=== PATIENT | female | born 1970 | race Caucasian/White ===

== ENCOUNTER → 2017-05-03 | Outpatient (CLI) | payer MEDICARE, MEDICAID ==
[~2017-05-03] MED LIST: 'XANAX0.25 MG PO; AUGMENTIN 875 M1 TA1 PO; AUGMENTIN 875 M1 TAB PO; BACTRIM DS 8001 TA1 PO; BACTROBAN CREAM15 GM NAS; BACTROBAN22 TP; CLARITIN10 MG PO; CLINDAMYCIN HC300 MG PO; DAYPRO600 M1 PO; DICLOFENAC POTA50 MG PO; DIFLUCAN150 MG PO; DOXYCYCLINE100 M2 PO; FLEXERIL10 MG PO; FLEXERIL5 MG PO; FOLIC ACID800 MCG PO; JANUVIA100 MG PO; KEFLEX500 MG PO; LANTUS100 U/ML SC; LIDODERM 5% PATC1 EA PO; LYRICA150 MG PO; MEDROL DOSEPAK4 MG PO; METFORMIN500 MG PO; MIRAPEX1 MG PO; MOTRIN800 MG PO; NORFLEX100 MG PO; ONGLYZA5 MG PO; PRAVACHOL40 MG PO; PREDNICOT20 MG PO; PREDNISONE20 MG PO; PROVENTIL0.09 MG/AC IH; REQUIP1 MG PO; ROBAXIN750 MG PO; SEPTRA DS 800 M1 TAB PO; SIMVASTATIN40 MG PO; TESSALON PERLE100 M1 PO; TORADOL10 MG PO; TRAMADOL HCL50 MG PO; ULTRAM50 MG PO; VICO75300 PO; VICODIN 5/500 505 MG PO; VICODIN 500 MG-1 TAB PO; VICODIN ES 7501 TA1 PO; VICODIN ES 7501 TAB PO; VITAMIN D5000 I2 PO; VOLTAREN50 M1 PO; ZITHROMAX Z PA250 MG PO
[2017-05-03 08:17] LABS: BASO % 0.4 % (0.0-1.0); EOS # 0.3 10*3/uL (0.0-0.4); EOS % 2.9 % (1.0-4.0); HEMATOCRIT 40.2 % (37.0-47.0); LYMPH # 2.3 10*3/uL (1.3-4.4); LYMPH % 23.3 % (27.0-41.0); MEAN CELL VOLUME 92.2 fl (81.0-99.0); MEAN CORPUSCULAR HGB 29.8 pg (27.0-31.0); MEAN CORPUSCULAR HGB CONC 32.3 g/dl (33.0-37.0); MEAN PLATELET VOLUME 10.3 fl (9.6-12.3); MONO # 0.7 10*3/uL (0.1-1.0); MONO % 7.2 % (3.0-9.0); NEUT # 6.4 10*3/uL (2.3-7.9); NEUT % 65.8 % (47.0-73.0); PLATELET COUNT AUTOMATED 329 10*3/uL (130-400); RED BLOOD COUNT 4.36 10*6/uL (4.10-5.10); RED CELL DISTRI WIDTH 15.9 % (0-14.5); WHITE BLOOD COUNT 9.7 10*3/uL (4.8-10.8)
[2017-05-03 09:00] LABS: CREATININE 0.53 mg/dL (0.55-1.02); SGPT/ALT 19 U/L (12-78)
== END | disposition home or self-care (01) ==
LOC: LAB 06:57 → MAMMO 07:20
DX: Z12.31 Encounter for screening mammogram for malignant neoplasm of breast (principal); M05.79 Rheumatoid arthritis with rheumatoid factor of multiple sites without organ or systems involvement; Z79.899 Other long term (current) drug therapy

== ENCOUNTER 2017-10-12 14:55 | Emergency (ER) | payer MEDICARE, MEDICAID ==
[~2017-10-12] VITALS: Ht 165.1 cm; Wt 90.7 kg
[2017-10-12 14:59] VITALS: BP 172/83
[2017-10-12] MEDS ORDERED: DELTASONE20 M1 PO (16:52)
== END 2017-10-12 17:01 | disposition home or self-care (01) ==
LOC: ED 14:55
DX: G89.29 Other chronic pain (principal); M54.5 Low back pain; F17.200 Nicotine dependence, unspecified, uncomplicated; Z98.51 Tubal ligation status; Z98.890 Other specified postprocedural states; Z79.899 Other long term (current) drug therapy

== ENCOUNTER 2017-10-16 09:20 | Emergency (ER) | payer MEDICARE ==
[~2017-10-16] VITALS: Wt 90.7 kg
[~2017-10-16 09:20] MED LIST changes: +DELTASONE20 M1 PO
[2017-10-16 09:35] VITALS: BP 148/95
[2017-10-16] MEDS ORDERED: Percocet 325 MG1 TAB PO (09:37)
[2017-10-16] MEDS ORDERED: PREDNISONE10 M1 PO ×2 (10:02→10:07)
[2017-10-16] MEDS ORDERED: Orphenadrine C100 MG PO (10:07)
== END 2017-10-16 10:31 | disposition home or self-care (01) ==
LOC: ED 09:20
DX: M54.30 Sciatica, unspecified side (principal); F17.200 Nicotine dependence, unspecified, uncomplicated; Z79.899 Other long term (current) drug therapy

== ENCOUNTER 2017-10-18 17:11 | Emergency (ER) | payer MEDICARE ==
[~2017-10-18 17:11] MED LIST changes: +Orphenadrine C100 MG PO; +PREDNISONE10 M1 PO; +Percocet 325 MG1 TAB PO
[2017-10-18 17:42] LABS: BASO % 0.3 % (0.0-1.0); EOS # 0.1 10*3/uL (0.0-0.4); EOS % 0.4 % (1.0-4.0); HEMATOCRIT 38.7 % (37.0-47.0); HEMOGLOBIN 12.7 g/dl (12.0-16.0); LYMPH # 4.5 10*3/uL (1.3-4.4); LYMPH % 28.1 % (27.0-41.0); MEAN CELL VOLUME 87.6 fl (81.0-99.0); MEAN CORPUSCULAR HGB 28.7 pg (27.0-31.0); MEAN CORPUSCULAR HGB CONC 32.8 g/dl (33.0-37.0); MEAN PLATELET VOLUME 9.8 fl (9.6-12.3); MONO # 1.1 10*3/uL (0.1-1.0); MONO % 6.8 % (3.0-9.0); NEUT # 10.2 10*3/uL (2.3-7.9); NEUT % 63.9 % (47.0-73.0); PLATELET COUNT AUTOMATED 358 10*3/uL (130-400); RED BLOOD COUNT 4.42 10*6/uL (4.10-5.10); RED CELL DISTRI WIDTH 14.6 % (0-14.5)
[2017-10-18 17:58] LABS: ALBUMIN 3.3 gm/dl (3.1-4.5); ALKALINE PHOSPHATASE 89 U/L (45-117); BUN 13 mg/dl (7-24); CHLORIDE 101 mmol/L (98-107); CREATININE 0.59 mg/dL (0.55-1.02); POTASSIUM 3.5 mmol/L (3.5-5.1); SGOT/AST 6 IU/L (3-35); SGPT/ALT 18 U/L (12-78); SODIUM 139 mmol/L (136-145); TOTAL PROTEIN 6.8 gm/dL (6.4-8.2)
[2017-10-18 19:11] VITALS: BP 169/86
== END 2017-10-18 20:00 | disposition home or self-care (01) ==
LOC: ED 17:11
PROVIDERS: Physician Assistant
DX: M54.16 Radiculopathy, lumbar region (principal); Z79.899 Other long term (current) drug therapy

== ENCOUNTER 2017-10-29 21:18 | Emergency (ER) | payer MEDICARE ==
[~2017-10-29] VITALS: Ht 165.1 cm; Wt 99.8 kg
[2017-10-29 21:22] VITALS: BP 160/81
[2017-10-29] MEDS ORDERED: AUGMENTIN 875875 MG PO (23:21)
[2017-10-29] MEDS ORDERED: MEDROL DOSEPAK4 MG PO (23:21)
[2017-10-29] MEDS ORDERED: PROAIR HFA8.5 GM INH (23:21)
== END 2017-10-29 23:26 | disposition home or self-care (01) ==
LOC: ED 21:18
DX: J40 Bronchitis, not specified as acute or chronic (principal); F17.200 Nicotine dependence, unspecified, uncomplicated; Z98.51 Tubal ligation status; Z98.890 Other specified postprocedural states; Z79.899 Other long term (current) drug therapy

== ENCOUNTER → 2017-11-22 | Day surgery (SDC) | payer MEDICARE ==
[~2017-11-22] VITALS: Ht 165.1 cm; Wt 99.8 kg
[2017-11-22] VITALS (10 sets, daily range): BP systolic 139–158; BP diastolic 54–81
[~2017-11-22] MED LIST changes: +AUGMENTIN 875875 MG PO; +CYCLOBENZAPRINE10 MG PO; +LEVEMIR100 UNIT/1 SC; +PROAIR HFA8.5 GM INH; +VICTOZA 2-0.6 MG/0.1 SC; +VITAMIN D-32000 UNI1 PO
== END | disposition home or self-care (01) ==
LOC: EDSTATUS 11-12 11:45 → SDC 11-12 11:45 → RAD 11-15 11:30 → CT 11-15 13:00 → SDC 11-19 10:15
DX: M48.061 Spinal stenosis, lumbar region without neurogenic claudication (principal); G89.29 Other chronic pain; M51.36 Other intervertebral disc degeneration, lumbar region; M51.26 Other intervertebral disc displacement, lumbar region; M54.16 Radiculopathy, lumbar region; F17.210 Nicotine dependence, cigarettes, uncomplicated; G43.909 Migraine, unspecified, not intractable, without status migrainosus; E11.9 Type 2 diabetes mellitus without complications; E78.00 Pure hypercholesterolemia, unspecified; Z87.442 Personal history of urinary calculi; Z86.14 Personal history of Methicillin resistant Staphylococcus aureus infection

== ENCOUNTER → 2018-01-03 | Outpatient (CLI) | payer MEDICARE | END | disposition home or self-care (01) | LOC: MAMMO 13:11 | DX: N63.10 Unspecified lump in the right breast, unspecified quadrant (principal); R05 Cough; R92.8 Other abnormal and inconclusive findings on diagnostic imaging of breast ==

== ENCOUNTER 2018-05-26 11:20 | Emergency (ER) | payer MEDICARE ==
[~2018-05-26] VITALS: Ht 165.1 cm; Wt 90.7 kg
--- NOTE | ~2018-05-26 | EKG ---
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
[2018-05-26 11:37] LABS: BASO # 0.1 10*3/uL (0.0-0.1); BASO % 0.7 % (0.0-1.0); EOS # 0.3 10*3/uL (0.0-0.4); EOS % 3.6 % (1.0-4.0); HEMATOCRIT 42.9 % (37.0-47.0); HEMOGLOBIN 14.3 g/dl (12.0-16.0); LYMPH # 2.8 10*3/uL (1.3-4.4); LYMPH % 31.3 % (27.0-41.0); MEAN CELL VOLUME 89.7 fl (81.0-99.0); MEAN CORPUSCULAR HGB 29.9 pg (27.0-31.0); MEAN CORPUSCULAR HGB CONC 33.3 g/dl (33.0-37.0); MEAN PLATELET VOLUME 9.7 fl (9.6-12.3); MONO # 0.6 10*3/uL (0.1-1.0); MONO % 6.3 % (3.0-9.0); NEUT # 5.1 10*3/uL (2.3-7.9); PLATELET COUNT AUTOMATED 350 10*3/uL (130-400); RED BLOOD COUNT 4.78 10*6/uL (4.10-5.10); RED CELL DISTRI WIDTH 15.3 % (0-14.5); WHITE BLOOD COUNT 8.8 10*3/uL (4.8-10.8)
[2018-05-26] MEDS ORDERED: LOSARTAN POTASS25 M1 PO (11:40)
[2018-05-26 11:46] LABS: ACT PARTIAL THROMBO TIME 23.3 SECONDS (20.8-31.5); INTERNATIONAL NORM RATIO 0.9 (2.0-3.5)
[2018-05-26 11:54] LABS: ALBUMIN 3.5 gm/dl (3.1-4.5); ALKALINE PHOSPHATASE 96 U/L (45-117); BUN 6 mg/dl (7-24); CHLORIDE 104 mmol/L (98-107); LIPASE 95 U/L (73-393); POTASSIUM 3.9 mmol/L (3.5-5.1); SGOT/AST 8 IU/L (3-35); SGPT/ALT 20 U/L (12-78); SODIUM 140 mmol/L (136-145); TOTAL PROTEIN 7.9 gm/dL (6.4-8.2)
[2018-05-26 12:02] LABS: TROPONIN I < 0.015 ng/ml (<0.045)
[2018-05-26 13:55] VITALS: BP 172/91
[2018-07-05] MEDS ORDERED: IBU800 MG PO (17:08)
[2018-07-05] MEDS ORDERED: PREDNISONE50 MG PO (17:08)
[2018-07-05] MEDS ORDERED: CHLORZOXAZONE500 M2 PO (17:08)
== END 2018-05-26 14:51 | disposition home or self-care (01) ==
LOC: ED 11:20
PROVIDERS: Emergency Medicine
DX: I10 Essential (primary) hypertension (principal); R79.1 Abnormal coagulation profile; Z98.51 Tubal ligation status; Z79.899 Other long term (current) drug therapy

== ENCOUNTER 2018-07-16 23:30 | Emergency (ER) | payer MEDICARE ==
[~2018-07-16] VITALS: Ht 165.1 cm; Wt 90.7 kg
[~2018-07-16 23:30] MED LIST changes: +CHLORZOXAZONE500 M2 PO; +IBU800 MG PO; +LOSARTAN POTASS25 M1 PO; +PREDNISONE50 MG PO
[2018-07-16 23:35] VITALS: BP 133/51
[2018-07-17] MEDS ORDERED: KETOROLAC10 MG PO (01:31)
[2018-07-17] MEDS ORDERED: ROBAXIN500 M1 PO (01:31)
== END 2018-07-17 01:51 | disposition home or self-care (01) ==
LOC: ED 23:30
DX: M54.16 Radiculopathy, lumbar region (principal); Z79.899 Other long term (current) drug therapy; Z79.84 Long term (current) use of oral hypoglycemic drugs; Z98.51 Tubal ligation status

== ENCOUNTER → 2018-07-18 | Outpatient (CLI) | payer MEDICARE ==
[~2018-07-18] MED LIST changes: +KETOROLAC10 MG PO; +ROBAXIN500 M1 PO
== END | disposition home or self-care (01) ==
LOC: CARD 02:27
DX: R00.0 Tachycardia, unspecified (principal); R05 Cough

== ENCOUNTER 2018-07-26 12:26 | Emergency (ER) | payer MEDICARE ==
[~2018-07-26] VITALS: Ht 165.1 cm; Wt 90.7 kg
[2018-07-26 12:27] VITALS: BP 131/69
[2018-07-31] MEDS ORDERED: NAPROSYN500 MG PO (06:08)
[2018-07-31] MEDS ORDERED: CYCLOBENZAPRINE10 MG PO (06:08)
== END 2018-07-26 13:10 | disposition home or self-care (01) ==
LOC: ED 12:26
DX: G89.29 Other chronic pain (principal); M54.5 Low back pain; E66.9 Obesity, unspecified; F17.210 Nicotine dependence, cigarettes, uncomplicated; Z79.899 Other long term (current) drug therapy; Z79.84 Long term (current) use of oral hypoglycemic drugs

== ENCOUNTER 2018-08-10 16:06 | Emergency (ER) | payer MEDICARE ==
[~2018-08-10] VITALS: Ht 165.1 cm; Wt 90.7 kg
[2018-08-10 16:06] VITALS: BP 121/58
[~2018-08-10 16:06] MED LIST changes: +NAPROSYN500 MG PO
[2018-08-10] MEDS ORDERED: CYCLOBENZAPRINE5 M3 PO (17:46)
[2018-08-10] MEDS ORDERED: PREDNISONE10 MG PO (17:46)
[2018-08-10] MEDS ORDERED: Motrin,Rufen800 MG PO (17:46)
== END 2018-08-10 18:03 | disposition home or self-care (01) ==
LOC: ED 16:06
DX: M54.42 Lumbago with sciatica, left side (principal); Z79.899 Other long term (current) drug therapy

== ENCOUNTER 2019-03-28 14:05 | Emergency (ER) | payer MEDICARE ==
[~2019-03-28] VITALS: Ht 165.1 cm; Wt 90.7 kg
[~2019-03-28 14:05] MED LIST changes: +CYCLOBENZAPRINE5 M3 PO; +Motrin,Rufen800 MG PO; +PREDNISONE10 MG PO; +SEPTDS PO
[2019-03-28 14:08] VITALS: BP 153/82
[2019-03-28 15:19] LABS: BASO # 0.1 10*3/uL (0.0-0.1); BASO % 0.6 % (0.0-1.0); EOS # 0.2 10*3/uL (0.0-0.4); EOS % 1.2 % (1.0-4.0); HEMATOCRIT 41.5 % (37.0-47.0); HEMOGLOBIN 13.5 g/dl (12.0-16.0); LYMPH # 2.8 10*3/uL (1.3-4.4); LYMPH % 22.6 % (27.0-41.0); MEAN CELL VOLUME 90.2 fl (81.0-99.0); MEAN CORPUSCULAR HGB 29.3 pg (27.0-31.0); MEAN CORPUSCULAR HGB CONC 32.5 g/dl (33.0-37.0); MEAN PLATELET VOLUME 9.7 fl (9.6-12.3); MONO # 0.6 10*3/uL (0.1-1.0); NEUT # 8.9 10*3/uL (2.3-7.9); NEUT % 70.4 % (47.0-73.0); PLATELET COUNT AUTOMATED 424 10*3/uL (130-400); RED CELL DISTRI WIDTH 14.1 % (0-14.5); WHITE BLOOD COUNT 12.6 10*3/uL (4.8-10.8)
[2019-03-28 15:35] LABS: ALBUMIN 3.5 gm/dl (3.1-4.5); ALKALINE PHOSPHATASE 95 U/L (45-117); BUN 5 mg/dl (7-24); CHLORIDE 101 mmol/L (98-107); CREATININE 0.64 mg/dL (0.55-1.02); POTASSIUM 3.7 mmol/L (3.5-5.1); SGOT/AST 4 IU/L (3-35); SGPT/ALT 19 U/L (12-78); SODIUM 137 mmol/L (136-145); TOTAL PROTEIN 7.8 gm/dL (6.4-8.2)
[2019-03-28] MEDS ORDERED: SEPTDS PO (18:53)
[2019-03-28] MEDS ORDERED: MEDROL DOSEPAK4 MG PO (18:53)
== END 2019-03-28 18:56 | disposition home or self-care (01) ==
LOC: ED 14:05
PROVIDERS: Nurse Practitioner Family
DX: J32.9 Chronic sinusitis, unspecified (principal); R11.2 Nausea with vomiting, unspecified; I10 Essential (primary) hypertension; G89.29 Other chronic pain; Z79.899 Other long term (current) drug therapy; Z79.2 Long term (current) use of antibiotics

== ENCOUNTER → 2019-07-03 | Outpatient (CLI) | payer MEDICARE ==
[~2019-07-03] MED LIST changes: +K-TAB20 MEQ PO; +TAMIFLU 75MG CA75 MG PO
== END | disposition home or self-care (01) ==
LOC: RAD 08:10
DX: M47.812 Spondylosis without myelopathy or radiculopathy, cervical region (principal); M25.512 Pain in left shoulder; M25.522 Pain in left elbow; T14.8XXA Other injury of unspecified body region, initial encounter; X58.XXXA Exposure to other specified factors, initial encounter; Y93.89 Activity, other specified; Y92.89 Other specified places as the place of occurrence of the external cause; Y99.8 Other external cause status

== ENCOUNTER 2019-07-17 19:41 | Emergency (ER) | payer MEDICARE ==
[~2019-07-17] VITALS: Ht 165.1 cm; Wt 90.7 kg
[~2019-07-17 19:41] MED LIST changes: -K-TAB20 MEQ PO; -TAMIFLU 75MG CA75 MG PO
[2019-07-17 19:42] VITALS: BP 136/54
[2019-07-17 21:44] LABS: BASO % 0.3 % (0.0-1.0); HEMATOCRIT 40.1 % (37.0-47.0); HEMOGLOBIN 13.4 g/dl (12.0-16.0); LYMPH % 14.8 % (27.0-41.0); MEAN CELL VOLUME 90.3 fl (81.0-99.0); MEAN CORPUSCULAR HGB 30.2 pg (27.0-31.0); MEAN CORPUSCULAR HGB CONC 33.4 g/dl (33.0-37.0); MEAN PLATELET VOLUME 9.9 fl (9.6-12.3); MONO # 0.8 10*3/uL (0.1-1.0); MONO % 11.7 % (3.0-9.0); NEUT # 5.1 10*3/uL (2.3-7.9); NEUT % 72.8 % (47.0-73.0); PLATELET COUNT AUTOMATED 287 10*3/uL (130-400); RED BLOOD COUNT 4.44 10*6/uL (4.10-5.10); RED CELL DISTRI WIDTH 14.3 % (0-14.5)
[2019-07-17 22:01] LABS: ALBUMIN 3.2 gm/dl (3.1-4.5); ALKALINE PHOSPHATASE 69 U/L (45-117); BUN 12 mg/dl (7-24); CHLORIDE 97 mmol/L (98-107); CREATININE 0.65 mg/dL (0.55-1.02); POTASSIUM 3.3 mmol/L (3.5-5.1); SGOT/AST 11 IU/L (3-35); SGPT/ALT 15 U/L (12-78); SODIUM 132 mmol/L (136-145); TOTAL PROTEIN 7.3 gm/dL (6.4-8.2)
[2019-07-17] MEDS ORDERED: MEDROL DOSEPAK4 MG PO (22:42)
[2019-07-17] MEDS ORDERED: TAMIFLU 75MG CA75 MG PO (22:42)
[2019-07-17] MEDS ORDERED: K-TAB20 MEQ PO (22:45)
== END 2019-07-17 23:28 | disposition home or self-care (01) ==
LOC: ED 19:41
PROVIDERS: Physician Assistant
DX: J10.1 Influenza due to other identified influenza virus with other respiratory manifestations (principal); J40 Bronchitis, not specified as acute or chronic; G43.909 Migraine, unspecified, not intractable, without status migrainosus; E11.9 Type 2 diabetes mellitus without complications; E78.00 Pure hypercholesterolemia, unspecified; G89.29 Other chronic pain; F17.200 Nicotine dependence, unspecified, uncomplicated; Z79.2 Long term (current) use of antibiotics; Z79.899 Other long term (current) drug therapy; Z79.4 Long term (current) use of insulin

== ENCOUNTER → 2020-09-03 | Outpatient (CLI) | payer MEDICARE ==
[~2020-09-03] MED LIST changes: +K-TAB20 MEQ PO; +TAMIFLU 75MG CA75 MG PO
== END | disposition home or self-care (01) ==
LOC: COVID19 10:58
PROVIDERS: ATTEND Family Medicine
DX: R05 Cough (principal); Z20.822 Contact with and (suspected) exposure to COVID-19

== ENCOUNTER → 2020-10-11 | Outpatient (CLI) | payer MEDICARE ==
[2020-10-11 09:16] LABS: BASO # 0.1 10*3/uL (0.0-0.1); BASO % 0.6 % (0.0-1.0); EOS # 0.3 10*3/uL (0.0-0.4); EOS % 3.2 % (1.0-4.0); HEMATOCRIT 40.5 % (37.0-47.0); LYMPH # 3.2 10*3/uL (1.3-4.4); MEAN CELL VOLUME 90.4 fl (81.0-99.0); MEAN CORPUSCULAR HGB 29.2 pg (27.0-31.0); MEAN CORPUSCULAR HGB CONC 32.3 g/dl (33.0-37.0); MEAN PLATELET VOLUME 9.9 fl (9.6-12.3); MONO # 0.7 10*3/uL (0.1-1.0); MONO % 6.9 % (3.0-9.0); NEUT # 6.3 10*3/uL (2.3-7.9); NEUT % 58.8 % (47.0-73.0); PLATELET COUNT AUTOMATED 400 10*3/uL (130-400); RED BLOOD COUNT 4.48 10*6/uL (4.10-5.10); RED CELL DISTRI WIDTH 14.3 % (0-14.5); WHITE BLOOD COUNT 10.7 10*3/uL (4.8-10.8)
== END | disposition home or self-care (01) ==
LOC: LAB 08:51
PROVIDERS: Physical Therapist; ATTEND Family Medicine
DX: M79.10 Myalgia, unspecified site (principal); R53.83 Other fatigue

== ENCOUNTER 2021-05-22 17:20 | Emergency (ER) | payer MEDICARE ==
[~2021-05-22] VITALS: Ht 165.1 cm; Wt 81.6 kg
[2021-05-22 17:32] VITALS: BP 135/69
== END 2021-05-22 21:38 | disposition left against medical advice (07) ==
LOC: ED 17:20
DX: M79.605 Pain in left leg (principal); Z53.21 Procedure and treatment not carried out due to patient leaving prior to being seen by health care provider

== ENCOUNTER → 2021-05-23 | Outpatient (CLI) | payer OTHER | END | disposition home or self-care (01) | LOC: US 15:30 | PROVIDERS: ATTEND Family Medicine | DX: R59.0 Localized enlarged lymph nodes (principal); R60.0 Localized edema ==

== ENCOUNTER → 2021-06-16 | Outpatient (CLI) | payer OTHER | END | disposition home or self-care (01) | LOC: CARD 15:00 | PROVIDERS: ATTEND Family Medicine | DX: I51.7 Cardiomegaly (principal); R01.1 Cardiac murmur, unspecified ==

== ENCOUNTER → 2021-09-20 | Outpatient (CLI) | payer OTHER ==
[2021-09-20 14:11] LABS: ALBUMIN 3.2 gm/dl (3.1-4.5); ALKALINE PHOSPHATASE 61 U/L (45-117); BUN 17 mg/dl (7-24); CREATININE 0.73 mg/dL (0.55-1.02); SGOT/AST 13 IU/L (3-35); SGPT/ALT 22 U/L (12-78)
[2021-09-20 14:16] LABS: CHLORIDE 106 mmol/L (98-107); POTASSIUM 3.6 mmol/L (3.5-5.1); SODIUM 142 mmol/L (136-145)
== END | disposition home or self-care (01) ==
LOC: CARD 12:00 → LAB 12:01 → CARD 12:01
PROVIDERS: Orthopaedic Surgery; ATTEND Internal Medicine Cardiovascular Disease
DX: I35.8 Other nonrheumatic aortic valve disorders (principal); Z86.16 Personal history of COVID-19

== ENCOUNTER → 2022-03-29 | Outpatient (CLI) | payer OTHER | END | disposition home or self-care (01) | LOC: MAMMO 11:10 | PROVIDERS: ATTEND Family Medicine | DX: Z12.31 Encounter for screening mammogram for malignant neoplasm of breast (principal) ==

== ENCOUNTER → 2022-06-02 | Outpatient (CLI) | payer OTHER ==
[2022-06-02 10:16] LABS: ALKALINE PHOSPHATASE 92 U/L (45-117); BUN 11 mg/dl (7-24); CHLORIDE 103 mmol/L (98-107); CREATININE 0.69 mg/dL (0.55-1.02); POTASSIUM 3.4 mmol/L (3.5-5.1); SGOT/AST 12 IU/L (3-35); SGPT/ALT 35 U/L (12-78); SODIUM 139 mmol/L (136-145); TOTAL PROTEIN 7.5 gm/dL (6.4-8.2)
== END | disposition home or self-care (01) ==
LOC: LAB 09:38
PROVIDERS: ATTEND Orthopaedic Surgery
DX: M25.512 Pain in left shoulder (principal); Z79.1 Long term (current) use of non-steroidal anti-inflammatories (NSAID)

== ENCOUNTER → 2023-01-19 | Outpatient (CLI) | payer OTHER ==
[2023-01-19 13:24] LABS: ALKALINE PHOSPHATASE 78 U/L (46-116); BUN 9 mg/dl (9-23); CHLORIDE 100 mmol/L (98-107); POTASSIUM 3.6 mmol/L (3.4-5.1); SGPT/ALT 24 U/L (10-49); TOTAL PROTEIN 7.2 gm/dL (6.0-8.0)
== END | disposition home or self-care (01) ==
LOC: LAB 12:28
PROVIDERS: ATTEND Orthopaedic Surgery
DX: R53.83 Other fatigue (principal); Z79.1 Long term (current) use of non-steroidal anti-inflammatories (NSAID)